=== PATIENT | female | born 1995 | race Caucasian/White ===

== ENCOUNTER 2018-07-11 08:07 | Emergency (ER) | payer BC ==
[2018-07-11] MEDS ORDERED: ACETAMINOPHEN 325 MG TABLET (FP) PO ONE (08:21)
--- NOTE | 2018-07-11 08:21 | PDOC ---
History of Present Illness - General Chief Complaint: Migraine Headache Stated Complaint: MIGRAINE,TEMP,SORETHROAT,CONSTIPATION Time Seen by Provider: 07/11/18 08:15 History Source: Patient Exam Limitations: No Limitations - History of Present Illness Initial Comments: 07/11/18 08:21 HPI 23 YOF with no medical history presenting with headache, body aches, back pain and sore throat since last night. she describes her headache as temporal, radiating down to the sides of her neck, described as pressure and pounding. + tactile fevers and stuffy nose/congestion. Denies visual or hearing changes, photosensitivity, neck stiffness, chest pain, SOB, cough, palpitation, dizziness, weakness, N, V, D, abdominal pain, bladder and bowel problems, leg swelling, rash, No travel. +sick contacts - sister with similar sx, but resolved. usually constipated, makes BM only several times a week. no prior history of migraines Allergies: NKA Past Medical History: none Social history: No smoking. No alcohol. No illicit drugs. 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 HEAD, EYES, EARS, NOSE AND THROAT: +headache. No change in vision or hearing. No ear pain or discharge. +sore throat or mouth pain. No difficulty swallowing. +congestion and stuffy nose. CVS: no cp or syncope. Resp: no sob. No cough. Gastrointestinal: no abdominal pain, nausea or vomiting. +constipation. no diarrhea. Genitourinary: no urinary sx, hematuria. MUSCULOSKELETAL: No joint pain and swelling. +back pain, +neck pain. no neck stiffness SKIN: no redness or skin changes, no discharge, no rash. No wounds. Hematologic: no easy bruising/bleeding. NEUROLOGIC: +headache. No dizziness, LOC or altered mental status. No weakness, numbness or tingling. Allergic/Immunologic: no allergies All other systems reviewed and negative, or as documented in HPI. PE: General: Well appearing, awake and alert, NAD. HEENT: NCAT, PERRL, EOMI, clear conjunctiva, anicteric, moist mucus membranes, oropharynx erythematous, no oral lesions.. normal phonation, uvula midline, no tonsillar exudates or hypertrophy Neck: neck supple, FROM; no meningeal signs, neg brudzinski/kernig's Resp: CTAB, normal and even respirations, no respiratory distress CVS: +tachycardic, no murmurs, 2+ peripheral pulses throughout, no peripheral edema Abdomen: soft, NTND, no peritoneal signs. Back: +diffuse back tenderness to palpation, no midline tenderness. normal inspection and ROM MSK: no edema, CORONADO x4, ROM intact. No clubbing or cyanosis. normal bulk and tone. Extremities: no calf tenderness Neuro: alert, oriented appropriately; no focal neurologic deficits Skin: warm and well perfused, cap refill <2 sec, normal color; no rash or purpura/ecchymosis/petechiae. 07/11/18 08:33 Past History - Past Medical History Allergies/Adverse Reactions: Allergies Allergy/AdvReac Type Severity Reaction Status Date / Time No Known Allergies Allergy Verified 07/11/18 08:08 Home Medications: Ambulatory Orders Oral Control 1 tab PO DAILY 07/11/18 COPD: No - Suicide/Smoking/Psychosocial Hx Smoking History: Never smoked Have you smoked in the past 12 months: No Information on smoking cessation initiated: No Hx Alcohol Use: (WEEKENDS) Drug/Substance Use Hx: No *Physical Exam - Vital Signs Last Vital Signs Temp Pulse Resp BP Pulse Ox 101.4 F H 122 H 20 125/88 100 07/11/18 08:07 07/11/18 08:07 07/11/18 08:07 07/11/18 08:07 07/11/18 08:07 Moderate Sedation - Procedure Monitoring Vital Signs: Procedure Monitoring Vital Signs Temperature 101.4 F H 07/11/18 08:07 Pulse Rate 122 H 07/11/18 08:07 Respiratory Rate 20 07/11/18 08:07 Blood Pressure 125/88 07/11/18 08:07 O2 Sat by Pulse Oximetry (%) 100 07/11/18 08:07 Medical Decision Making - Medical Decision Making 07/11/18 08:27 hpi as documented VS with +fever and tachycardia Ddx. strep throat, pharyngitis, viral syndrome, early URI. doubt meningitis, serious bacterial infection or SOFTWARE MANAGER pathology. no neuro deficits, mentating, clear speech and nontoxic appearing. no meningeal signs as documented. no rashes or e/o meningococcemia. headaches likely benign and 2/2 fever/infection. no sz/AMS to suggest SOFTWARE MANAGER pathology or mass/infection. given tylenol/oral hydration, VS improved on reeval, remains tachy, but did defervesce significantly from 101.7 down to ~100.4, tachycardia trended down with appropriate response. she remains well appearing otherwise, feels much improved, aramis PO intake, nontoxic and tachy is in response to fever.. strep test_prelim neg for strep ag. f/u throat cultures no flu like sx to render testing, defer no chest sx or respiratory sx, low utility of cxr as no cough or respiratory derangements/hypoxia. dispo: Pt informed of my clinical impression, treatment recommendations and disposition plan. All questions answered to patient's satisfaction and expressed understanding and comfort with this. Reasons for returning to the ED sooner discussed with the patient otherwise, follow up with primary care physician. At the time of discharge, the patient is alert, clinically improved, tolerating po and verbalizes understanding of instructions. Patient does not suffer from an acute life-threatening medical condition at this time she is safe for outpatient follow-up. 07/11/18 08:33 07/11/18 09:05 07/11/18 10:25 07/11/18 10:47 *DC/Admit/Observation/Transfer Diagnosis at time of Disposition: Viral syndrome Fever Qualifiers: Fever type: unspecified Qualified Code(s): R50.9 - Fever, unspecified Pharyngitis Qualifiers: Pharyngitis/tonsillitis etiology: unspecified etiology Qualified Code(s): J02.9 - Acute pharyngitis, unspecified - Discharge Dispostion Disposition: HOME Condition at time of disposition: Improved Decision to Admit order: No - Referrals Referrals: Carlos Reyna [Non Staff, Medical] - - Patient Instructions Printed Discharge Instructions: DI for Pharyngitis/Tonsillopharyngitis -- Adult , DI for Viral Upper Respiratory Infection -- Adult, DI for Fever (Symptom) -- Adult Additional Instructions: Stay well hydrated and rest adequately. 1) Please follow-up with your primary care doctor in the next 1-2 days. Please call tomorrow for an appointment. If you cannot follow-up with your primary care doctor please return to the ED for any urgent issues. 2) You were given a copy of the tests performed today. Please bring the results with you and review them with your primary care doctor. Your strep test was negative, follow up on throat cultures. 3) If you have any worsening of symptoms or any other concerns please return to the ED immediately. Return if worsening symptoms including unremitting fevers, headache, neurologic changes, neck stiffness, seizure, confusion/lethargy, vomiting, visual or hearing disturbances, abdominal pain, chest pain, shortness of breath, syncope, dehydration, inability to take things by mouth/vomiting, altered mental status, Rash, or worsening concerning symptoms. 4) Please continue taking your home medications as directed. your medications on discharge include those below as listed . side effects may include upset stomach, abdominal pain, vomiting, or diarrhea. do not drink alcohol with your medications. Please take IBUPROFEN (aka MOTRIN, ADVIL, ALEVE) 400 mg and/or ACETAMINOPHEN ( aka Tylenol) 650-975 mg every 6 hours, as needed, for pain/fever. Please do not take these medications if you have a bleeding disorder, stomach or GI ulcer problems or liver disease. - Post Discharge Activity Forms/Work/School Notes: Back to Work
[2018-07-11] MEDS ORDERED: ACETAMINOPHEN 325 MG TABLET (FP) ONE (08:31)
[2018-07-11 08:37] VITALS: BMI 27.1
[2018-07-11] MEDS ORDERED: IBUPROFEN 600 MG TABLET (FP) PO ONE ×2 (09:38→09:39)
[2018-07-11 10:25] VITALS: BP 112/75; PULSE 113; TEMP 100.4
== END 2018-07-11 10:32 | disposition home or self-care (01) ==
LOC: FER 08:07
DX: B34.9 Viral infection, unspecified (principal); R50.9 Fever, unspecified; J02.9 Acute pharyngitis, unspecified
CPT/HCPCS: 84703; 87070; 87880; 99283-25